=== PATIENT | female | born 2000 | race Caucasian/White ===

== ENCOUNTER 2021-11-24 02:45 | Observation (INO) ==
[2021-11-24 03:49] LABS: BUN/Creatinine Ratio 11 (6-26); Blood Urea Nitrogen 9 mg/dL (6-20); Calcium 9.6 mg/dL (8.6-10.3); Carbon Dioxide 16 mEq/L (23-29); Chloride 105 mEq/L (98-107); Glucose 90 mg/dL (70-105); Osmolality,Calculated 284 (280-300); Potassium 3.1 mEq/L (3.5-5.1); Sodium 138 mEq/L (136-145); eGFR For African Americans > 60 (> 60); eGFR For Non-African Americans > 60 (> 60)
[2021-11-24] MEDS ORDERED: Ringers Solution, Lactated 1,000 ML IVC ONE ×2 (04:02→05:31)
[2021-11-24 04:28] LABS: Bacteria,Urine Few per hpf (None-Few); Bilirubin,Urine Negative (Negative); Blood,Urine Moderate (Negative); Clarity,Urine Clear (Clear); Color,Urine Light-Yellow (Yellow); Glucose,Urine (UA) Normal (Normal); Ketones,Urine >150 mg/dL (Negative); Leukocyte Esterase,Urine Large (Negative); Mucus,Urine Few per lpf (None-Few); Nitrite,Urine Negative (Negative); Protein,Urine Trace mg/dL (Neg-Trace); RBC,Urine 0-3 per hpf (0-3); Specific Gravity,Urine 1.013 (1.010-1.025); Squamous Epithelial Cell,Urine Moderate per hpf (None-Few); Urobilinogen,Urine Normal (Normal)
[2021-11-24 04:51] LABS: Amphetamine Screen,Urine Positive ng/mL (Cutoff=1000); Barbiturate Screen,Urine Negative ng/mL (Cutoff=200); Benzodiazepines Screen,Urine Negative ng/mL (Cutoff=200); Cannabinoid Screen,Urine Negative ng/mL (Cutoff = 50); Cocaine Screen,Urine Negative ng/mL (Cutoff= 300); Opiate Screen,Urine Negative ng/mL (Cutoff=300); Phencyclidine Screen,Urine Negative ng/mL (Cutoff=25)
[2021-11-24] MEDS ORDERED: *HR* LORazepam 2 MG/ML VIAL IVP ONE ×2 (05:36→07:38)
[2021-11-24] MEDS ORDERED: Ondansetron 4 MG/2 ML VIAL IVP ONE (06:55)
[2021-11-24] MEDS ORDERED: cephALEXin 500 MG CAPSULE PO ONE (07:08)
[2021-11-24] MEDS ORDERED: cefTRIAXone 2,000 MG in 0.9 % Sodium Chloride 20 ML IVP ONE (07:15)
[2021-11-24] MEDS ORDERED: Ondansetron 4 MG/2 ML VIAL IVP PRN (08:26)
[2021-11-24] MEDS ORDERED: Naloxone 0.4 MG/ML INJ IVP PRN ×2 (08:26→09:27)
[2021-11-24 08:59] LABS: Basophils % 0.5 %; Eosinophils % 0.5 %; Hematocrit 36.3 % (35.3-44.9); Hemoglobin 11.8 g/dL (11.5-15.4); Immature Granulocytes % 0.1 % (0-4); Lymphocytes # 1.1 K/mcL (0.6-4.6); Lymphocytes % 15.4 %; Mean Corpuscular HGB Conc 32.5 g/dL (31.6-35.5); Mean Corpuscular Hemoglobin 25.9 pg (28.0-33.3); Mean Corpuscular Volume 79.8 fL (83.0-100.0); Mean Platelet Volume 9.4 fL (9.4-12.4); Monocytes # 0.6 K/mcL (0.0-1.3); Neutrophils # 5.6 K/mcL (1.6-8.9); Platelet Count 294 K/mcL (140-400); Red Blood Count 4.55 M/mcL (3.82-4.97); Red Cell Distribution Width 15.9 % (11.5-14.5); Segmented Neutrophils % 75.5 %; White Blood Count 7.4 K/mcL (4.3-11.1)
[2021-11-24 09:16] LABS: BUN/Creatinine Ratio 9 (6-26); Blood Urea Nitrogen 6 mg/dL (6-20); Calcium 9.3 mg/dL (8.6-10.3); Carbon Dioxide 20 mEq/L (23-29); Chloride 104 mEq/L (98-107); Creatine Kinase 57 Units/L (30-223); Glucose 93 mg/dL (70-105); Magnesium 1.6 mg/dL (1.6-2.6); Osmolality,Calculated 279 (280-300); Phosphorous 2.6 mg/dL (2.7-4.5); Potassium 3.2 mEq/L (3.5-5.1); Sodium 136 mEq/L (136-145); eGFR For African Americans > 60 (> 60); eGFR For Non-African Americans > 60 (> 60)
[2021-11-24] MEDS ORDERED: Acetaminophen 325 MG TABLET PO PRN (09:27)
[2021-11-24] MEDS ORDERED: Prochlorperazine 10 MG/2 ML VIAL IVP PRN (09:28)
[2021-11-24] MEDS: Ringers Solution, Lactated 1,000 ML IVC SCH ×2 (09:45→16:24)
[2021-11-24] MEDS: Ibuprofen 600 MG TABLET PO PRN (16:54)
[2021-11-25] MEDS ORDERED: *HR* LORazepam 2 MG/ML VIAL IVP ONE (03:14)
[2021-11-25] MEDS ORDERED: Nitroglycerin 0.4 MG TAB.SUBL SL PRN (06:35)
[2021-11-25 07:35] LABS: Basophils # 0.1 K/mcL (0.0-0.2); Basophils % 1.1 %; Eosinophils # 0.2 K/mcL (0.0-0.6); Hematocrit 35.5 % (35.3-44.9); Hemoglobin 11.6 g/dL (11.5-15.4); Immature Granulocytes % 0.3 % (0-4); Lymphocytes # 1.9 K/mcL (0.6-4.6); Lymphocytes % 28.5 %; Mean Corpuscular HGB Conc 32.7 g/dL (31.6-35.5); Mean Corpuscular Volume 79.6 fL (83.0-100.0); Mean Platelet Volume 9.8 fL (9.4-12.4); Monocytes # 0.5 K/mcL (0.0-1.3); Neutrophils # 3.9 K/mcL (1.6-8.9); Platelet Count 291 K/mcL (140-400); Red Blood Count 4.46 M/mcL (3.82-4.97); Segmented Neutrophils % 59.1 %; White Blood Count 6.6 K/mcL (4.3-11.1)
[2021-11-25 07:54] LABS: Alanine Aminotransferase 9 Units/L (7-52); Albumin 4.4 g/dL (3.5-5.7); Albumin/Globulin Ratio 1.7 (1.1-2.2); Alkaline Phosphatase 52 Units/L (34-104); Aspartate Amino Transferase 15 Units/L (13-39); BUN/Creatinine Ratio 11 (6-26); Blood Urea Nitrogen 8 mg/dL (6-20); Calcium 9.1 mg/dL (8.6-10.3); Carbon Dioxide 15 mEq/L (23-29); Chloride 108 mEq/L (98-107); Globulin 2.6 g/dL (2.4-3.5); Glucose 75 mg/dL (70-105); Magnesium 1.7 mg/dL (1.6-2.6); Osmolality,Calculated 281 (280-300); Phosphorous 2.6 mg/dL (2.7-4.5); Sodium 137 mEq/L (136-145); eGFR For African Americans > 60 (> 60); eGFR For Non-African Americans > 60 (> 60)
[2021-11-25] MEDS: cefTRIAXone 1,000 MG in 0.9 % Sodium Chloride 10 ML IVP SCH (09:18)
[2021-11-25] MEDS: Ibuprofen 600 MG TABLET PO PRN (17:05)
[2021-11-25 18:12] VITALS: TEMP 97.9
[2021-11-26 08:25] LABS: BUN/Creatinine Ratio 18 (6-26); Blood Urea Nitrogen 13 mg/dL (6-20); Calcium 9.1 mg/dL (8.6-10.3); Carbon Dioxide 18 mEq/L (23-29); Chloride 108 mEq/L (98-107); Glucose 82 mg/dL (70-105); Osmolality,Calculated 279 (280-300); Potassium 3.7 mEq/L (3.5-5.1); Sodium 135 mEq/L (136-145); eGFR For African Americans > 60 (> 60); eGFR For Non-African Americans > 60 (> 60)
[2021-11-26] MEDS: cefTRIAXone 1,000 MG in 0.9 % Sodium Chloride 10 ML IVP SCH ×2 (08:48→09:11)
[2021-11-26 09:11] VITALS: BP 94/58; PULSE 82; O2SAT 96
[2021-11-26 12:48] LABS: Influenza A PCR Negative (Negative); Influenza B PCR Negative (Negative); Resp. Syncytial Virus PCR Negative (Negative); SARS-CoV-2 by PCR (In House) Negative (Negative)
== END 2021-11-26 14:56 ==
LOC: 3BNU 02:45 → EMEROOARM 02:45 → SUATTDRO 14:23 → 3BNU 15:13
PROVIDERS: ADMIT Family Medicine; ATTEND Nurse Practitioner

== ENCOUNTER 2021-11-26 14:41 | Inpatient (IN) ==
[2021-11-26] MEDS ORDERED: haloperidoL 5 MG TABLET PO PRN (15:35)
[2021-11-26] MEDS ORDERED: *HR* LORazepam 2 MG/ML VIAL IM PRN (15:35)
[2021-11-26] MEDS ORDERED: Haloperidol Lactate 5 MG/ML VIAL IM PRN (15:35)
[2021-11-26] MEDS ORDERED: Mag Hydrox/Al Hydrox/Simeth 30 ML UDC PO PRN (15:35)
[2021-11-26] MEDS ORDERED: Acetaminophen 325 MG TABLET PO PRN (15:35)
[2021-11-26] MEDS ORDERED: MOM Conc 10 ML UD.LIQ PO PRN (15:35)
[2021-11-26] MEDS ORDERED: *HR* LORazepam 1 MG TABLET PO PRN (15:35)
[2021-11-26] MEDS: hydrOXYzine pamoate 25 MG CAPSULE PO PRN (21:16)
[2021-11-26] MEDS: traZODone 50 MG TABLET PO PRN (21:16)
[2021-11-27] MEDS: JAIMIESS PO SCH (09:08)
[2021-11-27] MEDS: hydrOXYzine pamoate 25 MG CAPSULE PO PRN (20:57)
[2021-11-27] MEDS: traZODone 50 MG TABLET PO PRN (20:57)
[2021-11-28] MEDS: JAIMIESS PO SCH (09:21)
[2021-11-28] MEDS: hydrOXYzine pamoate 25 MG CAPSULE PO PRN (21:43)
[2021-11-28] MEDS: traZODone 50 MG TABLET PO PRN (21:43)
[2021-11-29] MEDS: JAIMIESS PO SCH (08:57)
[2021-11-29 20:34] VITALS: O2SAT 100
[2021-11-29] MEDS: traZODone 50 MG TABLET PO PRN (21:12)
[2021-11-29] MEDS: hydrOXYzine pamoate 25 MG CAPSULE PO PRN (21:12)
[2021-11-30] MEDS: JAIMIESS PO SCH (09:39)
[2021-11-30 10:52] VITALS: BP 99/63; PULSE 81; TEMP 97.1
== END 2021-11-30 16:11 | disposition home or self-care (01) | DRG 918 ==
LOC: 1ANU 14:41 → UNDODISIN 11-30 13:05
PROVIDERS: ADMIT Psychiatry & Neurology Psychiatry; ATTEND Psychiatry & Neurology Psychiatry